=== PATIENT | female | born 1945 | race Caucasian/White ===

== ENCOUNTER 2017-07-30 20:27 | Emergency (ER) | payer OTHER ==
[~2017-07-30] VITALS: Ht 152.4 cm; Wt 88.0 kg
[~2017-07-30 20:27] MED LIST: ADULT TUSS100 MG/5 M PO; AMLODIPINE BESYL5 MG PO; ASPIR 8181 MG; CATAFLAM50 MG; DIOVAN HCT 80-11 TAB; DOLOGESIC 500-1 EACH PO; GASTRACE CAPSU1 EACH; GLIMEPIRIDE2 MG; HYDROCHLOROTHIA25 MG PO; HYZAAR 50/12.51 TAB; LIBRAX CAPSULE1 CA1; LOPRESSOR25 MG PO; LOTRIMIN TP; METOPROLOL SUC100 MG; NEURONTIN300 MG; NEURONTIN600 MG PO; NORFLEX100 MG; NORVASC2.5 MG; PEPCID40 MG PO; PRILOSEC10 MG PO; PROBIOTIC1 EACH PO; SYNTHROID100 MCG; SYNTHROID125 MCG; SYNTHROID50 MCG PO; Synthroid 100MCG TABLET PO; VISTARIL25 MG PO; WAL-ZAN 7575 MG PO; ZANTAC150 M1; ZOFRAN4 MG PO; ZOLOFT50 MG
[2017-07-31] MEDS ORDERED: ULTRAM50 MG PO (04:23)
== END 2017-07-31 04:40 | disposition home or self-care (01) ==
LOC: ER 20:27
DX: K29.70 Gastritis, unspecified, without bleeding (principal); R07.89 Other chest pain

== ENCOUNTER → 2017-08-27 | Emergency (ER) | payer OTHER ==
[~2017-08-27] MED LIST changes: +ULTRAM50 MG PO
== END | disposition home or self-care (01) ==
LOC: ER 09:52
DX: R42 Dizziness and giddiness (principal)

== ENCOUNTER 2017-09-11 09:18 | Emergency (ER) | payer OTHER ==
[~2017-09-11] VITALS: Ht 152.4 cm; Wt 96.2 kg
[2017-09-11] MEDS ORDERED: LASIX20 MG (09:30)
[2017-09-11] MEDS ORDERED: KRISTALOSE10 GM (09:30)
[2017-09-11] MEDS ORDERED: ATARAX25 MG (09:32)
[2017-09-11] MEDS ORDERED: LEVOXYL112 MCG (09:34)
== END 2017-09-11 14:55 | disposition home or self-care (01) ==
LOC: ER 09:18
DX: I10 Essential (primary) hypertension (principal); C22.9 Malignant neoplasm of liver, not specified as primary or secondary; D64.89 Other specified anemias

== ENCOUNTER 2017-09-17 11:01 | Inpatient (IN) | payer OTHER ==
[~2017-09-17] VITALS: Ht 152.4 cm; Wt 97.5 kg
[~2017-09-17 11:01] MED LIST changes: +ATARAX25 MG; +KRISTALOSE10 GM; +LASIX20 MG; +LEVOXYL112 MCG
[2017-09-17] MEDS ORDERED: NEXAVAR200 MG PO (11:17)
[2017-09-23] MEDS ORDERED: NORVASC2.5 MG PO (12:38)
[2017-09-23] MEDS ORDERED: TOPROL XL25 M1 PO (12:39)
== END 2017-09-23 16:06 | disposition home or self-care (01) | DRG 433 ==
LOC: ER 11:01 → MEDI 09-18 20:17
DX: K74.69 Other cirrhosis of liver (principal); E72.20 Disorder of urea cycle metabolism, unspecified; C22.0 Liver cell carcinoma; E87.0 Hyperosmolality and hypernatremia; I10 Essential (primary) hypertension; D69.59 Other secondary thrombocytopenia; R31.0 Gross hematuria; R41.82 Altered mental status, unspecified